=== PATIENT | female | born 1990 | race Caucasian/White ===

== ENCOUNTER → 2024-01-09 06:26 | Day surgery (SDC) | payer BC, SELFPAY ==
[2024-01-09 08:09] LABS: Glucose - Point of Care 135 mg/dl (70-99)
== END ==
LOC: GI 06:26
PROVIDERS: ATTENDING PHYSICIAN Internal Medicine Gastroenterology
DX: R19.4 Change in bowel habit (principal); R12 Heartburn; K44.9 Diaphragmatic hernia without obstruction or gangrene; R11.0 Nausea
CPT/HCPCS: 45378; 43239; 88305; 82962; 88342

== ENCOUNTER → 2024-01-20 07:18 | Outpatient (REF) | payer BC, SELFPAY | LOC: HWRAD 07:18 | PROVIDERS: ATTENDING PHYSICIAN Internal Medicine Gastroenterology; FAMILY PHYSICIAN Internal Medicine | DX: R10.9 Unspecified abdominal pain (principal) | CPT/HCPCS: 76700 ==

== ENCOUNTER → 2024-03-12 07:52 | Outpatient (REF) | payer BC, SELFPAY | LOC: RAD 07:52 | PROVIDERS: ATTENDING PHYSICIAN Internal Medicine | DX: F41.9 Anxiety disorder, unspecified (principal); R93.89 Abnormal findings on diagnostic imaging of other specified body structures; R10.32 Left lower quadrant pain; Z68.24 Body mass index [BMI] 24.0-24.9, adult | CPT/HCPCS: 74177; Q9967 ==